=== PATIENT | female | born 1955 | race Caucasian/White ===

== ENCOUNTER 2023-12-17 12:10 | Outpatient (REF) | payer MEDICARE, SELFPAY ==
--- NOTE | ~2023-12-17 | XR_ITS ---
EXAMINATION: XR CHEST XR LUMBAR SPINE XR THORACIC SPINE CLINICAL INFORMATION: Back pain. COMPARISON: None available. TECHNIQUE: 2 views of the thoracic spine. 3 views of the lumbar spine. FINDINGS: THORACIC SPINE: Severe S-shaped thoracolumbar scoliosis. Possible diffuse parenchymal disease on very limited images of the medial aspects of the bilateral lungs should be evaluated with dedicated PA and lateral views of the chest. Atherosclerotic aortic calcifications. Loss of height of several lower thoracic vertebral bodies is difficult to characterize due to severe scoliosis and overlying bony and soft tissue structures. Multilevel degenerative changes in the thoracic spine. LUMBAR SPINE: Leftward curvature of the lumbar spine. Multiple small rounded pelvic calcifications may be vascular. Vascular calcifications. Straightening of the normal lumbar lordosis. Facet arthritis in the lower lumbar spine. The bones are diffusely demineralized. Multilevel spondylosis with moderate loss of disc space height and abundant hypertrophic change most notable at L2-L3 and L3-L4. XR/XR thoracic spine 3V IMPRESSION: 1. Severe S-shaped thoracolumbar scoliosis. 2. Possible diffuse parenchymal disease on very limited images of the bilateral lungs should be evaluated with dedicated PA and lateral views of the chest. 3. Multilevel degenerative changes in the thoracic spine. 4. Multilevel degenerative disc disease most notable at L2-L3 and L3-L4. 5. Facet arthritis in the lower lumbar spine.
--- NOTE | ~2023-12-17 | XR_ITS ---
EXAMINATION: XR CHEST XR LUMBAR SPINE XR THORACIC SPINE CLINICAL INFORMATION: Back pain. COMPARISON: None available. TECHNIQUE: 2 views of the thoracic spine. 3 views of the lumbar spine. FINDINGS: THORACIC SPINE: Severe S-shaped thoracolumbar scoliosis. Possible diffuse parenchymal disease on very limited images of the medial aspects of the bilateral lungs should be evaluated with dedicated PA and lateral views of the chest. Atherosclerotic aortic calcifications. Loss of height of several lower thoracic vertebral bodies is difficult to characterize due to severe scoliosis and overlying bony and soft tissue structures. Multilevel degenerative changes in the thoracic spine. LUMBAR SPINE: Leftward curvature of the lumbar spine. Multiple small rounded pelvic calcifications may be vascular. Vascular calcifications. Straightening of the normal lumbar lordosis. Facet arthritis in the lower lumbar spine. The bones are diffusely demineralized. Multilevel spondylosis with moderate loss of disc space height and abundant hypertrophic change most notable at L2-L3 and L3-L4. XR/XR lumbar spine 2-3V IMPRESSION: 1. Severe S-shaped thoracolumbar scoliosis. 2. Possible diffuse parenchymal disease on very limited images of the bilateral lungs should be evaluated with dedicated PA and lateral views of the chest. 3. Multilevel degenerative changes in the thoracic spine. 4. Multilevel degenerative disc disease most notable at L2-L3 and L3-L4. 5. Facet arthritis in the lower lumbar spine.
[2023-12-17 12:25] LABS: MANUAL DIFF FLAG NO
[2023-12-17 12:37] LABS: Basophils Percent Auto 0.3 % (0-2); Eosinophils Absolute Auto 0.1 X10*3/uL (0.0-0.4); Hematocrit 43.9 % (37.0-47.0); Hemoglobin 14.3 g/dl (12.0-16.0); Imm Gran Abs Auto 0.02 X10*3/uL (0.00-0.03); Imm Gran Pct Auto 0.3 % (0.0-0.4); Lymphocytes Absolute Auto 2.1 X10*3/uL (1.2-4.9); Lymphocytes Percent Auto 30.3 % (20-40); Mean Corpuscular HGB Conc 32.6 g/dl (31.0-35.0); Mean Corpuscular Hemoglobin 28.9 pg (27.0-33.0); Mean Corpuscular Volume 88.7 fL (80.0-98.0); Mean Platelet Volume 10.2 fL (9.4-12.3); Monocytes Absolute Auto 0.4 X10*3/uL (0.1-1.2); Monocytes Percent Auto 5.6 % (2-11); Neutrophils Absolute Auto 4.3 x10*3/uL (2.0-8.3); Neutrophils Percent Auto 62.5 % (45-73); Platelet Count 250 X10*3/uL (160-400); Red Blood Count 4.95 X10*6/uL (4.20-5.50); Red Cell Distribution Width 14.1 % (11.0-16.0); White Blood Count 6.8 X10*3/uL (4.8-10.8)
[2023-12-17 13:04] LABS: Alanine Aminotransferase 19 U/L (0-31); Albumin Level 4.3 g/dL (3.5-5.0); Alkaline Phosphatase 112 U/L (39-117); Anion Gap 13 (12-20); Aspartate Amino Transferase 22 U/L (5-31); Bilirubin Total 0.4 mg/dL (0.0-1.0); Blood Urea Nitrogen 22 mg/dL (9-16); Calcium 9.5 mg/dL (8.4-10.2); Carbon Dioxide 27 mmol/L (22-29); Chloride 106 mmol/L (96-108); Cholesterol 190 mg/dL (<200); Estimated Glomerular Filt Rate > 60; Glucose Random 110 mg/dL (60-115); HDL Cholesterol 60 mg/dL (>40); LDL Cholesterol Calculated 105 mg/dL (<100); Potassium 4.4 mmol/L (3.3-5.1); Sodium 142 mmol/L (135-145); Total Protein 7.7 g/dL (6.5-8.0); Triglycerides 129 mg/dL (<150)
== END 2023-12-17 12:11 | disposition home or self-care (01) ==
LOC: HO.LAB 12:10
PROVIDERS: PCP Internal Medicine; Visit Provider Internal Medicine
DX: M54.50 Low back pain, unspecified (principal); R53.83 Other fatigue; E78.5 Hyperlipidemia, unspecified
CPT/HCPCS: 36415; 72072; 72100; 80053; 80061; 85025

== ENCOUNTER 2024-02-15 11:58 | Outpatient (REF) | payer MEDICARE, SELFPAY ==
--- NOTE | ~2024-02-15 | XR_ITS ---
EXAMINATION: XR CHEST CLINICAL INFORMATION: Shortness of breath and fatigue COMPARISON: None available. TECHNIQUE: 2 views of the chest were obtained. FINDINGS: There is a severe thoracolumbar scoliosis. The cardiac silhouette does not appear enlarged. The lungs are clear. No pleural effusion or pneumothorax. There are degenerative changes of the spine. XR/XR chest 2V IMPRESSION: No evidence for acute disease in the chest. Severe thoracolumbar scoliosis and degenerative change.
== END 2024-02-15 11:59 | disposition home or self-care (01) ==
LOC: HO.XRAY 11:58
PROVIDERS: PCP Internal Medicine; Visit Provider Internal Medicine
DX: R06.02 Shortness of breath (principal); R53.83 Other fatigue
CPT/HCPCS: 71046

== ENCOUNTER 2024-03-07 13:43 | Outpatient (REF) | payer MEDICARE, SELFPAY ==
--- NOTE | ~2024-03-07 | MM_ITS ---
EXAMINATION: BONE DENSITOMETRY CLINICAL INDICATION: Asymptomatic menopausal state. COMPARISON: Baseline BD dated 04/07/2008. TECHNIQUE: Using a mobiDEOS DXA System (software version: 13.1) manufactured by [employer], dual-energy x-ray absorptiometry was performed of the lumbar spine and left hip. The images are of good technical quality. Summary results are attached. FINDINGS: LEFT FEMUR, NECK: Current: BMD 0.773 g/cm2, Z-score -0.5, T-score -1.9, osteopenia. Baseline: BMD 0.777 g/cm2. LEFT FEMUR, TOTAL: Current: BMD 0.902 g/cm2, Z-score 0.2, T-score -0.8, normal, 0.0% no change from baseline (<5% change is not significant). Baseline: BMD 0.902 g/cm2. AP SPINE L1-L4: Current: BMD 1.063 g/cm2, Z-score 0.4, T-score -1.0, normal, 13.7% increase from baseline (<5% change is not significant). Baseline: BMD 0.935 g/cm2. IDENTIFIED RISK FACTORS: Early menopause, height loss, left oophorectomy, secondary osteoporosis. HISTORY OF FRACTURE: None listed. MEDICATIONS: Calcium, vitamin D. MM/XR DEXA axial skeleton IMPRESSION: 1. DIAGNOSIS: Osteopenia based on the lowest T-score value of -1.9 in the femoral neck applying World Health Organization criteria. 2. 10-YEAR FRACTURE RISK PREDICTION, FRAX: Major osteoporotic fracture (clinical spine, forearm, hip or shoulder) 5.7%. Hip fracture 0.8%. 3. Treatment Recommendations: NOF guidelines recommend consideration for treatment in postmenopausal women and men age 50 and older presenting with the following: -A hip or vertebral (clinical or morphometric) fracture. -T-score less than or equal to -2.5 at the femoral neck or spine after appropriate evaluation to exclude secondary causes. -Low bone mass at the hip or spine and a 10-year fracture probability by FRAX of greater than or equal to 3% for hip fracture or greater than or equal to 20% for major osteoporotic fracture based on the [place] adapted WHO algorithm. 4. Other Recommendations: All treatment decisions require clinical judgment and consideration of individual patient factors, including patient preferences, comorbidities, previous drug use, risk factors not captured in the FRAX model (e.g. frailty, falls, vitamin D deficiency, increased bone turnover, interval significant decline in bone density) and possible under or overestimation of fracture risk by FRAX. Additional medical evaluation for secondary cause of low bone mineral density may be appropriate. FUTURE SCAN RECOMMENDATION: People with diagnosed cases of osteoporosis or at high risk for fracture should have regular bone mineral density tests. For patients eligible for Medicare, routine testing is allowed once every 2 years. The testing frequency can be increased to one year for patients who have rapidly progressing disease, those who are receiving or discontinuing medical therapy to restore bone mass, or have additional risk factors.
--- NOTE | ~2024-03-07 | MM_ITS ---
EXAMINATION: MM SCREENING DIGITAL BREAST TOMOSYNTHESIS, BILATERAL CLINICAL INFORMATION: Screening. Asymptomatic. COMPARISON: Mammography: This study is compared with prior exams dating back to 2008 at [facility]. Examination also compared with 05/01/2022, left breast ultrasound 05/02/2022 ([place]) on hard copy. TECHNIQUE: Digital breast tomosynthesis is performed in both the craniocaudal and mediolateral oblique views along with computer-aided detection (CAD). Synthesized 2D images are generated from the tomosynthesis. FINDINGS: There are scattered areas of fibroglandular density (ACR BI-RADS breast composition Category b). Small circumscribed density in the anterior left breast, 5:00 axis, measuring 6 mm is consistent with the known simple cyst in this location. There has been no change. There are minimal vascular calcifications bilaterally. No suspicious masses, grouped calcifications, or areas of architectural distortion in either breast. No skin or axillary abnormalities. MM/MM tomosynthesis screening BI IMPRESSION: No mammographic evidence of malignancy. ASSESSMENT: BI-RADS BI-RADS 2 - Benign Findings RECOMMENDATION: Routine annual mammography screening. 1 year F/U This examination should not preclude the clinical evaluation of a suspicious palpable abnormality. This patient's information was entered into a reminder system with a target due date for their next mammogram.
== END 2024-03-07 13:44 | disposition home or self-care (01) ==
LOC: HO.MAMMO 13:43
PROVIDERS: PCP Internal Medicine; Visit Provider Internal Medicine
DX: Z12.31 Encounter for screening mammogram for malignant neoplasm of breast (principal); Z13.820 Encounter for screening for osteoporosis; Z78.0 Asymptomatic menopausal state
CPT/HCPCS: 77063; 77067; 77080

== ENCOUNTER → 2024-03-07 14:00 | Outpatient (BNV) | payer MEDICARE, SELFPAY | PROVIDERS: PCP Internal Medicine; Visit Provider Radiology Diagnostic Radiology | DX: Z12.31 Encounter for screening mammogram for malignant neoplasm of breast (principal) | CPT/HCPCS: 77063; 77067 ==